=== PATIENT | female | born 1945 ===

== ENCOUNTER 2017-02-02 14:54 | Outpatient (RCR) | payer MEDICARE, BC | END 2017-02-18 | disposition home or self-care (01) | LOC: WCC 14:54 | DX: L97.519 Non-pressure chronic ulcer of other part of right foot with unspecified severity (principal); E11.49 Type 2 diabetes mellitus with other diabetic neurological complication; L97.513 Non-pressure chronic ulcer of other part of right foot with necrosis of muscle; I10 Essential (primary) hypertension; Z89.421 Acquired absence of other right toe(s) | CPT/HCPCS: 11043; 82962; 87070; 87205; 97605; G0277; G0463 ==

== ENCOUNTER 2017-02-19 09:59 | Outpatient (RCR) | payer MEDICARE, BC | END 2017-03-20 | disposition home or self-care (01) | LOC: WCC 09:59 | DX: L97.519 Non-pressure chronic ulcer of other part of right foot with unspecified severity (principal); E11.49 Type 2 diabetes mellitus with other diabetic neurological complication; L97.513 Non-pressure chronic ulcer of other part of right foot with necrosis of muscle; I10 Essential (primary) hypertension; Z88.8 Allergy status to other drugs, medicaments and biological substances; Z89.421 Acquired absence of other right toe(s); E11.621 Type 2 diabetes mellitus with foot ulcer; I73.89 Other specified peripheral vascular diseases | CPT/HCPCS: 11042; 11043; 11045; 82962; 87070; 87181; 87205; 97605; G0277; G0463 ==

== ENCOUNTER 2017-03-23 13:00 | Outpatient (RCR) | payer MEDICARE, BC | END 2017-04-20 | disposition home or self-care (01) | LOC: WCC 13:00 | DX: L97.519 Non-pressure chronic ulcer of other part of right foot with unspecified severity (principal); E11.49 Type 2 diabetes mellitus with other diabetic neurological complication; I10 Essential (primary) hypertension; L97.313 Non-pressure chronic ulcer of right ankle with necrosis of muscle; L97.513 Non-pressure chronic ulcer of other part of right foot with necrosis of muscle; E11.621 Type 2 diabetes mellitus with foot ulcer; E11.51 Type 2 diabetes mellitus with diabetic peripheral angiopathy without gangrene | CPT/HCPCS: 11042; 11043; 15275; 82962; 97605; G0277; G0463; Q4132; Q4133 ==

== ENCOUNTER 2017-04-21 13:00 | Outpatient (RCR) | payer MEDICARE, BC | END 2017-05-20 | disposition home or self-care (01) | LOC: WCC 13:00 | DX: L97.519 Non-pressure chronic ulcer of other part of right foot with unspecified severity (principal); E11.49 Type 2 diabetes mellitus with other diabetic neurological complication; L97.513 Non-pressure chronic ulcer of other part of right foot with necrosis of muscle; Z88.8 Allergy status to other drugs, medicaments and biological substances; Z89.421 Acquired absence of other right toe(s); E11.9 Type 2 diabetes mellitus without complications; I10 Essential (primary) hypertension; E11.621 Type 2 diabetes mellitus with foot ulcer | CPT/HCPCS: 10060; 15275; 82962; 87070; 87181; 87205; G0277; Q4132 ==

== ENCOUNTER 2017-05-21 08:30 | Outpatient (RCR) | payer MEDICARE, BC | END 2017-06-20 | disposition home or self-care (01) | LOC: WCC 08:30 | DX: L97.513 Non-pressure chronic ulcer of other part of right foot with necrosis of muscle (principal); E11.49 Type 2 diabetes mellitus with other diabetic neurological complication; L97.519 Non-pressure chronic ulcer of other part of right foot with unspecified severity; Z88.8 Allergy status to other drugs, medicaments and biological substances; I10 Essential (primary) hypertension | CPT/HCPCS: 11042; 15275; 87070; 87181; 87205; G0463; Q4133 ==

== ENCOUNTER 2017-06-29 11:31 | Outpatient (RCR) | payer MEDICARE, BC | END 2017-07-21 | disposition home or self-care (01) | LOC: WCC 11:31 | DX: L97.519 Non-pressure chronic ulcer of other part of right foot with unspecified severity (principal); Z88.8 Allergy status to other drugs, medicaments and biological substances; E11.9 Type 2 diabetes mellitus without complications; I10 Essential (primary) hypertension; Z89.421 Acquired absence of other right toe(s) | CPT/HCPCS: 82962; G0463 ==

== ENCOUNTER 2018-02-23 13:05 | Outpatient (RCR) | payer MEDICARE, BC | END 2018-03-20 | disposition home or self-care (01) | LOC: WCC 13:05 | DX: S21.001S Unspecified open wound of right breast, sequela (principal); X58.XXXS Exposure to other specified factors, sequela; C50.411 Malignant neoplasm of upper-outer quadrant of right female breast; I10 Essential (primary) hypertension; E11.9 Type 2 diabetes mellitus without complications; Z88.8 Allergy status to other drugs, medicaments and biological substances; Z89.421 Acquired absence of other right toe(s) | CPT/HCPCS: 11043 ==

== ENCOUNTER 2018-04-14 11:48 | Outpatient (RCR) | payer MEDICARE, BC ==
[~2018-04-14] VITALS: Ht 160 cm; Wt 65.8 kg
== END 2018-04-20 | disposition home or self-care (01) ==
LOC: WCC 11:48
DX: S21.001A Unspecified open wound of right breast, initial encounter (principal); Z85.3 Personal history of malignant neoplasm of breast; Z89.421 Acquired absence of other right toe(s); I10 Essential (primary) hypertension; E11.9 Type 2 diabetes mellitus without complications; Z88.8 Allergy status to other drugs, medicaments and biological substances; X58.XXXA Exposure to other specified factors, initial encounter
CPT/HCPCS: G0463